=== PATIENT | male | born 1975 | race Caucasian/White ===

== ENCOUNTER 2018-06-02 05:42 | Inpatient (IN) | payer OTHER ==
[2018-06-02] VITALS (11 sets, daily range): BP systolic 120–151; BP diastolic 65–86
[~2018-06-02] VITALS: Ht 205.7 cm; Wt 124.3 kg
[~2018-06-02 05:42] MED LIST: NKM
[2018-06-02] MEDS ORDERED: Vancomycin 1gm/D5W 275ml IVPB ONE ×2 (06:00)
[2018-06-02] MEDS ORDERED: Pantoprazole Inj IVP ONE (06:00)
[2018-06-02] MEDS ORDERED: Propofol 1,000mg/ 100ml btl IV ONE (07:00)
[2018-06-02] MEDS ORDERED: Lacri-Lube Opth Oint 3.5gm ONE (07:03)
[2018-06-02] MEDS ORDERED: Vancomycin 1gm inj IVPB ONE (07:03)
[2018-06-02] MEDS ORDERED: Pantoprazole Inj ONE (07:03)
[2018-06-02] MEDS ORDERED: Zemuron 50mg/5ml Inj IV ONE (07:04)
[2018-06-02] MEDS ORDERED: Succinylcholine 20mg/ml 10ml vial ONE (07:04)
[2018-06-02] MEDS ORDERED: Heparin 5000 units/ml inj ONE (07:11)
[2018-06-02] MEDS ORDERED: Gelfoam Size TOPIC ONE (07:12)
[2018-06-02] MEDS ORDERED: Thrombin 5000 units spray kit TOPIC ONE ×2 (07:12→09:14)
[2018-06-02] MEDS ORDERED: fentaNYL 100 mcg/2 mL IV ONE ×2 (07:12→08:37)
[2018-06-02] MEDS ORDERED: Thrombin 5000 units TOPIC ONE ×2 (07:12→09:53)
[2018-06-02] MEDS ORDERED: Midazolam 2mg/2ml Inj ONE (07:12)
[2018-06-02] MEDS ORDERED: Lidocaine 1% MPF 10mg/ml 5ml ONE (07:12)
[2018-06-02] MEDS ORDERED: Bacitracin 50000 Units Vial ONE (07:13)
[2018-06-02] MEDS ORDERED: Bupivacaine w/Epi 0.25% 30ml Vial INJ ONE (07:13)
[2018-06-02] MEDS ORDERED: Gelfoam Absorbable 1gm powder pkt TOPIC ONE (07:30)
[2018-06-02] MEDS ORDERED: Heparin 1000 units/ml 1ml Vial ONE (07:37)
[2018-06-02] MEDS ORDERED: NS Irrig 1000ml ONE (08:00)
[2018-06-02] MEDS ORDERED: Sterile Water Irrig 1000ml IRRIG ONE (08:00)
--- NOTE | 2018-06-02 08:04 | Pre-Procedure Note/Attestation ---
Pre-Procedure Note/Attestation Complete Prior to Procedure Planned Procedure: bilateral Procedure Narrative: Posterior lumbar decompression bilaterally at L4-5 level with posterolateral arthrodesis and interspinous fusion with titanium graft, with use of allograft, autograft and iliac crest bone marrow aspirate. Attestation I attest that I discussed the nature of the procedure; its benefits; risks and complications; and alternatives (and the risks and benefits of such alternatives ), prior to the procedure, with the patient (or the patient's legal corporate sales representative). I attest that, if there was a reasonable possibility of needing a blood transfusion, the patient (or the patient's legal corporate sales representative) was given the [place] Department of [employer] Services standardized written summary, pursuant to the [employer] [place] Blood Safety Act ([place] Health and Safety Code # 1645, as amended). I attest that I re-evaluated the patient just prior to the surgery and that there has been no change in the patient's H&P, except as documented below: Daniel Edmonds MD Jun 02, 2018 08:04
[2018-06-02] MEDS ORDERED: Dexamethasone 4mg/ml vial ONE (08:23)
[2018-06-02] MEDS ORDERED: Morphine Sulfate 10mg/ml Inj ONE (08:35)
[2018-06-02] MEDS ORDERED: Sodium Chloride 10ml vial INJ ONE (09:03)
[2018-06-02] MEDS ORDERED: Glycopyrrolate 0.2mg/ml 1ml Vial ONE (09:05)
[2018-06-02] MEDS ORDERED: Neostigmine 1mg/ml 10ml Inj ONE (09:05)
[2018-06-02] MEDS ORDERED: Ketorolac 30mg Inj ONE (09:07)
[2018-06-02] MEDS ORDERED: LR 1000ml 1,000 ML IVLG SCH (09:20)
--- NOTE | 2018-06-02 09:20 | Anethesia Preoperative Eval ---
Anesthesia Pre-op PMH/ROS General Date of Evaluation: Jun 02, 2018 Time of Evaluation: 07:12 Anesthesiologist: Scar ASA Score: ASA 2 Mallampati Score Class I : Soft palate, uvula, fauces, pillars visible Class II: Soft palate, uvula, fauces visible Class III: Soft palate, base of uvula visible Class IV: Only hard plate visible Mallampati Classification: Class II Surgeon: Kendal Diagnosis: Lumbar radiculopathy Surgical Procedure: L4-L5 laminotomy with decompression and interbody fusion Anesthesia History: none Family History: no anesthesia problems Allergies: Coded Allergies: No Known Allergies (Unverified , 05/24/18) Patient NPO?: Yes NPO Date: Jun 01, 2018 NPO Time: 193 Past Medical History Cardiovascular: Denies: HTN, CAD, ND, valve dz, arrhythmia, other Pulmonary: Denies: asthma, COPD, DOROTHY, other Gastrointestinal/Genitourinary: Reports: GERD - mild; Denies: CRI, ESRD, other Neurologic/Psychiatric: Reports: other - chronic pain; Denies: dementia, CVA, depression/anxiety, TIA Endocrine: Denies: DM, hypothyroidism, steroids, other HEENT: Denies: cataract (L), cataract (R), glaucoma, [place] (L), [place] (R), other Hematology/Immune: Denies: anemia, DVT, bleeding disorder, other Musculoskeletal/Integumentary: Denies: OA, RA, DJD, DDD, edema, other PMH Narrative: as above PSxH Narrative: Posterior spine fusion hernia repair, ankle Sx. Anesthesia Pre-op Phys. Exam Physician Exam Last Vital Signs Date Time Temp Pulse Resp B/P (MAP) Pulse Ox O2 Delivery O2 Flow Rate FiO2 06/02/18 06:16 98.3 76 20 151/86 (107) 96 06/02/18 06:09 Room Air Constitutional: NAD Neurologic: CN 2-12 intact Cardiovascular: RRR, no M/R/G Respiratory: CTA Gastrointestinal: S/NT/ND Airway Exam Mallampati Score: Class II MO: full Neck: flexible ROM: full Teeth: intact Dentures: no upper, no lower Anesthesia Pre-op A/P Labs see chart Studies Pre-op Studies: EKG - NSR, CXR - WNL Risk Assessment & Plan Assessment: ASA 2 Plan: GA with ETT neuromonitoring Status Change Before Surgery: No Pre-Antibiotics Drug: Vancomycin 1gr. Gentamycin 80mg. Given Within 1 Hr of Incision: Yes Time Given: 09:15 Jose Abbott MD Jun 02, 2018 09:20
[2018-06-02] MEDS ORDERED: Hydromorphone 0.5mg/0.5ml inj IVP PRN (09:30)
[2018-06-02] MEDS ORDERED: Midazolam 2mg/2ml Inj IVP PRN (09:30)
[2018-06-02] MEDS ORDERED: Ketorolac 30mg Inj IV PRN (09:30)
[2018-06-02] MEDS ORDERED: Acetaminophen (Non formulary) 100 ML IV ONE ×2 (09:30→11:45)
[2018-06-02] MEDS ORDERED: Meperidine 50mg/ml Inj(FOR RIGORS ONLY) IV PRN (09:30)
[2018-06-02] MEDS ORDERED: DiphenhydrAMINE 50mg/ml Inj IVP PRN (09:30)
[2018-06-02] MEDS ORDERED: Propofol 200mg/20ml IV ONE ×3 (09:58→10:34)
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
--- NOTE | 2018-06-02 11:32 | Immediate Post-Op Evaluation ---
Immediate Post-Op Evalulation Immediate Post-Op Evalulation Procedure: L4-L5 laminotomy with decompression and interbody fusion Date of Evaluation: Jun 02, 2018 Time of Evaluation: 11:30 IV Fluids: 1200 Blood Products: none Estimated Blood Loss: 50 Urinary Output: none Blood Pressure Systolic: 120 Blood Pressure Diastolic: 69 Pulse Rate: 78 Respiratory Rate: 20 O2 Sat by Pulse Oximetry: 99 Temperature (Fahrenheit): 98.1 Pain Score (1-10): 1 Nausea: No Vomiting: No Complications none Patient Status: reacts, patent, none Hydration Status: adequate Jose Abbott MD Jun 02, 2018 11:32
--- NOTE | 2018-06-02 11:44 | Diagnostic Imaging Report ---
INDICATION: Pain, intraoperative TECHNIQUE: Intraoperative imaging Fluoroscopy time: 10.1 seconds Total dose: 0.31805 mGym2 Total number of images: 3 COMPARISON: None FINDINGS: Intraoperative images demonstrate a surgical tool posterior to what is presumably the L5 vertebral body. Subsequent images demonstrate placement of interspinous fusion hardware between the L4 and L5 spinous processes IMPRESSION: Intraoperative images, as described
[2018-06-02] MEDS ORDERED: HYDROcodone/Acetamin 7.5/325 tab ORAL PRN ×2 (11:45)
[2018-06-02] MEDS ORDERED: Cyclobenzaprine 10mg Tab ORAL PRN (11:45)
[2018-06-02] MEDS ORDERED: Milk of Magnesia 30ml Ud ORAL PRN (11:45)
[2018-06-02] MEDS ORDERED: HYDROmorphone 1mg/ml Carpuject IVP PRN (11:45)
--- NOTE | 2018-06-02 11:59 | General Progress Note ---
Progress Note Progress Note Neurosurgert Recovery room S/ Comfortable. No leg pain O/ vs. Last 24 Hour Vital Signs Date Time Temp Pulse Resp B/P (MAP) Pulse Ox O2 Delivery O2 Flow Rate FiO2 06/02/18 06:16 98.3 76 20 151/86 (107) 96 06/02/18 06:09 Room Air Alert and oriented x 4 Moves all extremities well Normal sensation in the lower extremities. doing well admit to floor after cleared by rec room Family updated Daniel Edmonds MD Jun 02, 2018 11:59
[2018-06-02] MEDS: NS w/KCl 20mEq 1,000 ML IV SCH (14:02)
[2018-06-02] MEDS: Docusate Sod/Senna tab ORAL SCH (17:30)
[2018-06-02] MEDS: Docusate 100mg cap ORAL SCH (17:30)
--- NOTE | 2018-06-02 18:49 | 48 Hour Post Anesthesia Eval ---
Post Anesthesia Evaluation Procedure: L4-L5 laminotomy with decompression and interbody fusion Date of Evaluation: Jun 02, 2018 Time of Evaluation: 18:48 Blood Pressure Systolic: 127 0: 70 Pulse Rate: 91 Respiratory Rate: 19 Temperature (Fahrenheit): 98.1 O2 Sat by Pulse Oximetry: 95 Airway: patent Nausea: No Vomiting: No Pain Intensity: 3 Hydration Status: adequate Cardiopulmonary Status: Stable Mental Status/LOC: patient returned to baseline Follow-up Care/Observations: 0 Post-Anesthesia Complications: 0 Follow-up care needed: ready to discharge Brendan Boucher MD Jun 02, 2018 18:49
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
[2018-06-02] MEDS: Vancomycin 1 GM in D5W 275 ML IVPB SCH (20:54)
[2018-06-03 00:17] VITALS: BP 130/70
[2018-06-03] MEDS: NS w/KCl 20mEq 1,000 ML IV SCH ×2 (03:24)
[2018-06-03 04:00] VITALS: BP 129/78
[2018-06-03 07:22] LABS: ANION GAP 9 mmol/L (5-15); BLOOD UREA NITROGEN 14 mg/dL (7-18); CALCIUM 8.4 MG/DL (8.5-10.1); CARBON DIOXIDE 26 MMOL/L (21-32); CHLORIDE 105 MMOL/L (98-107); POTASSIUM 3.9 MMOL/L (3.5-5.1); SODIUM 140 MMOL/L (136-145)
[2018-06-03 08:00] VITALS: BP 125/76
[2018-06-03] MEDS: Docusate Sod/Senna tab ORAL SCH ×2 (08:10→17:23)
[2018-06-03] MEDS: Docusate 100mg cap ORAL SCH ×2 (08:10→17:23)
[2018-06-03] MEDS: Vancomycin 1 GM in D5W 275 ML IVPB SCH (08:11)
[2018-06-03 12:00] VITALS: BP 128/78
[2018-06-03 16:00] VITALS: BP 131/91
--- NOTE | 2018-06-03 18:51 | General Progress Note ---
Progress Note Progress Note Neurosurgery POD#1 S/ Doing well. R leg pain resolved with increase strength and sensation O/ vs: Last 24 Hour Vital Signs Date Time Temp Pulse Resp B/P (MAP) Pulse Ox O2 Delivery O2 Flow Rate FiO2 06/03/18 16:00 97.9 86 18 131/91 (104) 100 06/03/18 14:48 97.9 06/03/18 12:00 98.0 77 20 128/78 (95) 100 06/03/18 09:00 Room Air 06/03/18 08:00 97.8 81 20 125/76 (92) 95 06/03/18 06:49 98.1 06/03/18 04:00 97.6 79 19 129/78 (95) 95 06/03/18 04:00 98.1 06/03/18 00:17 98.1 93 19 130/70 (90) 95 06/02/18 20:00 Room Air 06/02/18 20:00 97.7 95 19 135/86 (102) 92 06/02/18 18:49 91 19 95 06/02/18 16:00 98.1 91 19 127/70 (89) 95 06/02/18 12:35 98.4 85 18 121/65 97 Nasal Cannula 3 06/02/18 12:20 90 16 122/67 97 Nasal Cannula 3 06/02/18 12:05 78 13 125/69 95 Nasal Cannula 3 06/02/18 11:50 80 16 129/73 97 Simple Mask 6 06/02/18 11:40 83 15 123/69 97 Simple Mask 6 06/02/18 11:32 84 14 126/70 97 Simple Mask 6 06/02/18 11:32 78 20 99 06/02/18 11:27 76 21 124/72 99 Simple Mask 6 06/02/18 11:22 98.2 86 20 120/69 99 Simple Mask 6 06/02/18 06:16 98.3 76 20 151/86 (107) 96 06/02/18 06:09 Room Air Alert and oriented x 4 moves all extremities well normal sensation dressing C/D/I ambulating independentlty lumbar brace in place labs: Laboratory Tests Test 06/03/18 05:50 Sodium Level 140 MMOL/L (136-145) Potassium Level 3.9 MMOL/L (3.5-5.1) Chloride Level 105 MMOL/L (98-107) Carbon Dioxide Level 26 MMOL/L (21-32) Anion Gap 9 mmol/L (5-15) Blood Urea Nitrogen 14 mg/dL (7-18) Creatinine 1.0 MG/DL (0.55-1.30) Estimat Glomerular Filtration Rate > 60 mL/min (>60) Glucose Level 106 MG/DL (74-106) Calcium Level 8.4 MG/DL (8.5-10.1) L S/p lumbar decompression and ISF L4-5 with improvement in low back pain and radiculopathy doing well D/c instructions reviewed with pt, his family and nursing Daniel Edmonds MD Jun 03, 2018 18:50
[2018-06-03] MEDS ORDERED: CYCLOBENZAPRINE10 MG ORAL (18:55)
[2018-06-03] MEDS ORDERED: HYDROCODON-ACE1 EA13 ORAL (18:56)
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
== END 2018-06-03 19:10 | disposition home or self-care (01) | DRG 455 ==
LOC: SDSOVERFLO 05:42 → 3E 13:29
PROC: 0SG0071 Fusion of Lumbar Vertebral Joint with Autologous Tissue Substitute, Posterior Approach, Posterior Column, Open Approach (ICD-10-PCS; principal; 2018-06-02 07:30)
PROC: 07DR3ZZ Extraction of Iliac Bone Marrow, Percutaneous Approach (ICD-10-PCS; principal; 2018-06-02 07:30)
PROC: 0SG00AJ Fusion of Lumbar Vertebral Joint with Interbody Fusion Device, Posterior Approach, Anterior Column, Open Approach (ICD-10-PCS; principal; 2018-06-02 07:30)
PROC: 4A11X4G Monitoring of Peripheral Nervous Electrical Activity, Intraoperative, External Approach (ICD-10-PCS; principal; 2018-06-02 07:30)
DX: M51.16 Intervertebral disc disorders with radiculopathy, lumbar region (principal); M48.062 Spinal stenosis, lumbar region with neurogenic claudication
CPT/HCPCS: 36415; 72020; 76001; 80048; 86850; 86900; 86901; 87081; 94003; 94150; C9399; J1580; J2250; J2710